=== PATIENT | female | born 1975 | race Caucasian/White ===

== ENCOUNTER 2017-01-09 19:13 | Emergency (ER) | payer SELFPAY ==
[~2017-01-09] VITALS: Ht 180.3 cm; Wt 134.4 kg
[2017-01-09] MEDS ORDERED: PREDNISONE20 MG PO (21:04)
[2017-01-09 21:22] VITALS: BP 139/63
== END 2017-01-09 21:18 | disposition home or self-care (01) ==
LOC: EME 19:13
DX: B34.9 Viral infection, unspecified (principal); J06.9 Acute upper respiratory infection, unspecified; J04.0 Acute laryngitis; F17.200 Nicotine dependence, unspecified, uncomplicated
CPT/HCPCS: 71020; 99281; 99283; J7512